=== PATIENT | male | born 1945 | race Caucasian/White ===

== ENCOUNTER 2021-03-18 10:06 | Inpatient (IN) ==
--- NOTE | 2021-03-04 14:24 | Anesthesiology Consultation ---
Date of Service March 04, 2021 Assessment & Plan (1) Encounter for pre-operative examination: COVID screening: Per assessment on 03/04: Travel screen negative, no known COVID- 19 positive contacts or current COVID-19 related symptoms. Patient vaccinated. Surgeon arranging preop COVID testing. Awaiting results. Chart Review Chart Review: Acceptable Risk for Surgery and Patient seen in Pre Admission Testing Teaching & Discussion Pre-Anesthesia Teaching/Discussion Notes: Instructed NPO after midnight before surgery,except medications with 15 cc of water. Medication instructions provided according to the PAT guidelines. History Surgery Operation Date: 03/17/21 12:40 Proposed Procedures p L5-S1 Decompression, Possible Fusion, Spinal Cord Monitoring - Mal Alcantara, Height/Weight Height: 5 ft 9 in Weight: 101.5 kg Allergies Allergy/AdvReac Type Severity Reaction Status Date / Time No Known Allergies Allergy Verified 03/03/21 08:46 Medications Home Medications Medication Instructions Recorded Confirmed Last Taken No Known Home Medications 03/03/21 03/03/21 Unknown Past Medical History Medical History Degenerative disc disease History of high blood pressure History of kidney stones Osteoarthritis Varicose veins of both lower extremities Exercise / Class Metabolic Activity II 4-5 Yardwork/Stairs/Walk up hill (one FS (no CP, no SOB)) Past Family History Family History Other No family history of adverse response to anesthesia Past Surgical History Surgical History H/O metal removed from eye History of cystoscopy + stents, kidney stone removal ([facility], 01/2021) History of tooth extraction History of total hip arthroplasty R/L History of total knee replacement R/L Past Anesthesia History No Hx of Anesthesia Complications and No Family Hx of Anesthesia Complications History of PONV No Hx of PONV and No Hx of Motion Sickness Social History Smoking Status: Never smoker Do You Dip or Chew Tobacco: No Hx Alcohol Use: No Hx Substance Use: No substance use type: does not use Review of Systems Patient denies chest pain, shortness of breath, dyspnea on exertion, fever, chills, cough, wheezing, palpitations. Physical Exam Vital Signs VITALS BP 133/86 P 69 TEMP 98.0 SP02 97%RA RESP 16 PHYSICAL Full cervical extension range of motion. Full TMJ range of motion. TMD 3 finger breaths Mallampati Score 3 Dentition: intact Lungs: clear throughout to auscultation Cardiac: regular rate and rhythm, no murmurs noted Spine: normal Carotid arteries: negative bruit Extremities: no edema Lab Results Anesthesia Preop Results Results Anesthesia Widget: WBC 6.46 K/uL (4.8-10.8) 03/04/21 Hgb 12.2 g/dL (14.0-18.0) L 03/04/21 Hct 37.7 % (42-52) L 03/04/21 Plt 290 K/uL (130-400) 03/04/21 Na 138 mmol/L (136-145) 03/04/21 K 4.1 mmol/L (3.5-5.1) 03/04/21 Cl 113 mmol/L (98-107) H 03/04/21 CO2 24 mmol/L (21-32) 03/04/21 BUN 17 mg/dl (7-18) 03/04/21 Creat 1.17 mg/dl (0.6-1.4) 03/04/21 Glucose Level 93 mg/dl (70-99) 03/04/21 PT 10.0 Seconds (9.0-12.0) 03/04/21 PTT 25.7 Seconds (21.0-31.0) 03/04/21 INR 1.0 (0.9-1.1) 03/04/21 Urine Color Yellow 03/04/21 Urine Appearance Clear (Clear) 03/04/21 Urine pH 5.0 (4.5-7.5) 03/04/21 Urine Specific [place] 1.024 (1.000-1.030) 03/04/21 Urine Protein Negative (Negative) 03/04/21 Urine Glucose (UA) Negative (Negative) 03/04/21 Urine Ketones Trace (Negative) H 03/04/21 Urine Blood Negative (Negative) 03/04/21 Urine Nitrite Negative (Negative) 03/04/21 Urine Bilirubin Negative (Negative) 03/04/21 Urine Urobilinogen Negative (Negative) 03/04/21 Urine Leukocyte Esterase Negative (Negative) 03/04/21 Blood Type B Positive 03/04/21 Antibody Screen NEGATIVE 03/04/21 Testing Electrocardiogram Date: 03/04/21 Findings: + NSR @ (70) Chest X-Ray Date: 03/04/21 Findings: + NAD
[~2021-03-18 10:06] MED LIST: ACETAMINOPHEN 500 MG TAB PO SCH; CeleBREX 200 MG CAP PO SCH; GABAPENTIN 300 MG CAP PO SCH; LR 15ML/HR IV SCH; ceFAZolin 2000MG 2,000 MG/15 ML SYR IV SCH
[2021-03-18] MEDS ORDERED: fentaNYL citrate 100 MCG/2 ML VIAL ONE (11:05)
[2021-03-18] MEDS ORDERED: HYDROmorphone INJ 2 MG/ML SYR/VIAL IV PRN (11:46)
[2021-03-18] MEDS ORDERED: PROMETHAZINE HCL 6.25 MG in SODIUM CHLORIDE 0.9% 50 ML IV PRN (11:46)
[2021-03-18] MEDS ORDERED: ATROPINE SULFATE 0.1 MG/ML 10ML SYR IV PRN (11:46)
[2021-03-18] MEDS ORDERED: fentaNYL citrate 100 MCG/2 ML VIAL IV PRN (11:46)
[2021-03-18] MEDS ORDERED: ONDANSETRON INJ 2 MG/ML 2 ML VIAL IV PRN ×2 (11:46→15:27)
[2021-03-18] MEDS ORDERED: ePHEDrine sulfate 50 MG/ML AMP IV PRN (11:46)
--- NOTE | 2021-03-18 12:12 | History & Physical Bridge Note ---
Date of Service March 18, 2021 History & Physical Bridge Note I have examined the patient, reviewed the History & Physical and in the interval since the performance of the History & Physical I have noted the following changes of clinical significance: no changes noted
[2021-03-18] MEDS ORDERED: BUPIVACAINE 0.5 % 5 MG/1 ML MPF 30ML VIAL ONE (12:13)
[2021-03-18] MEDS ORDERED: EPINEPHrine INJ 1 MG/ML AMP ONE (12:13)
--- NOTE | 2021-03-18 12:13 | History & Physical Report ---
Date of Service March 18, 2021 Assessment & Plan (1) Neurogenic claudication due to lumbar spinal stenosis: Plan: L5-S1 decompression, possible fusion History of Present Illness Chief Complaint: Back and leg pain Primary Care Provider: NO PCP This is a 75-year-old male presents with current persistent back and leg pain. Failing extensive course of nonoperative care is here for surgical invention. Allergies Allergy/AdvReac Type Severity Reaction Status Date / Time No Known Allergies Allergy Verified 03/18/21 10:37 Home Medications Medication Instructions Recorded Confirmed Type No Known Home Medications 03/03/21 03/03/21 History Past Med/Surg History Medical History Degenerative disc disease History of high blood pressure History of kidney stones Osteoarthritis Varicose veins of both lower extremities Surgical History H/O metal removed from eye History of cystoscopy + stents, kidney stone removal ([facility], 01/2021) History of tooth extraction History of total hip arthroplasty R/L History of total knee replacement R/L Family History Other No family history of adverse response to anesthesia Social History Smoking Status: Never smoker Second Hand Exposure: No; Do You Dip or Chew Tobacco: No; Hx Alcohol Use: No Hx Substance Use: No Preferred Language: Lithuanian Heel Seat Laster Required: No Beliefs That Will Affect Care: None Current Living Situation: Alone Feels Safe at Home: Yes Safety Concerns: Feels Safe At This Time Assistive Devices: Cane, Glasses and Hearing Aid - Bilateral Assistive Devices Comment: READING GLASSES Physical Exam Physical Exam: Patient is alert and oriented Heart regular in rhythm Lungs clear to auscultation Results & Data ([facility]) Vital Signs (Past 12 Hours) Vital Signs Temp Pulse Resp BP Pulse Ox 03/18/21 10:38 36.7 C 55 L 20 143/98 H 96
[2021-03-18] MEDS ORDERED: HYDROmorphone INJ 2 MG/ML SYR/VIAL ONE (13:03)
[2021-03-18] MEDS ORDERED: ONDANSETRON INJ 2 MG/ML 2 ML VIAL ONE (13:06)
[2021-03-18] MEDS ORDERED: LIDOCAINE 2% 2 ML VIAL/AMP(20MG/ML) INFIL ONE (13:06)
[2021-03-18] MEDS ORDERED: LARYING-O-JET KIT (LTA) ONE (13:06)
[2021-03-18] MEDS ORDERED: PROPOFOL IV EMULSION 10 MG/ML 20 ML VIAL IV ONE (13:06)
[2021-03-18] MEDS ORDERED: DEXAMETHASONE SOD INJ 4 MG/ML VIAL ONE (13:06)
[2021-03-18] MEDS ORDERED: ROCURONIUM BROMIDE 10 MG/ML 5 ML VIAL IV ONE (13:06)
[2021-03-18] MEDS ORDERED: ePHEDrine sulfate 50 MG/ML AMP ONE ×2 (13:24→13:29)
[2021-03-18] MEDS ORDERED: FLOSEAL HEMOSTATIC MATRIX 10ML TOP ONE (14:09)
--- NOTE | 2021-03-18 14:18 | Operative Report ---
Post Operative Report Pre & Post Diagnosis Operation Date: 03/18/21 11:45 Pre-Op Diagnosis: Spinal Stenosis, Lumbar Region with Neurogenic Claudication Post-Op Diagnosis: Spinal Stenosis, Lumbar Region with Neurogenic Claudication I identified the patient and participated in the time-out.: Yes Procedure Operation Date: 03/18/21 11:45 Actual Procedures #1 lumbar decompression with bilateral medial facetectomies and foraminotomies L4-5 L5-S1. #2 posterior spinal fusion L5-S1. #3 placement posterior instrumentation L5-S1. #4 interbody fusion L5-S1. #5 placement peek cage 14 x 26 mm at L5-S1. #6 placement locally harvested morselized autograft in the posterior gutters. #7 placement use collagen sponge, and master graft in the posterior lateral gutters and I factor in the interbody space. Surgeon Mal Alcantara, DO Doughnut Icer Aleyda Saez Estimated Blood Loss 200 Findings See Below The patient is 5 foot 9 weighing over 101 kg with a BMI of 33. Patient's body habitus did contribute to significant technical difficulty acquiring her deeper retractors longer instruments in order to perform his procedure. This had at least 25% increase to the operative time. Specimens None Indications This is a 75-year-old male who presents above-mentioned diagnosis after failing course of nonoperative care is here for the above-mentioned procedure. Description of Procedure Patient was met with identified informed consent obtained. Patient was then taken to the operative suite underwent ablation placed in a prone position the [place] table top Alexi frame. All bony prominences well-padded eyes inspected to ensure no external pressure placed upon the. This point the lumbar spine was prepped and draped in a sterile fashion. Sharp dissection with the assistance of Bovie cautery was performed down to and exposing the lamina and transverse processes of L5 and the sacral ala bilaterally. From caudal cephalad fashion complete laminectomy L5 partial laminectomy L4 bilateral medial facetectomies and foraminotomies performed addressing all spinal stenosis. Pedicle screws were then placed in L5 and S1 levels bilaterally with assistance of fluoroscopy and appropriate sized keely placed. By way of a transforaminal approach on the left complete discectomy of L5-S1 was performed endplates curetted to subcortical bleeding bone and a 14 x 26 mm peek cage filled with I factor tapped in position. The rods were locked in final position bilaterally. The transverse processes of L5 and sacral ala burred to subcortical bleeding bone. Infuse collagen sponge master graft local autograft was placed in the posterior gutters. 15 round REBECCA drain inserted. The incision was then closed with 1 Vicryl the fascia 2-0 Vicryl subcutaneously and 4 Monocryl for final skin closure. Steri-Strips dressings placed. Patient will continue PACU stable condition. Please note spinal cord monitoring was utilized at the procedure no changes noted. Lastly Aleyda Saez was present at the entire surgery involved the patient positioning complex portions of the surgery and final skin closure. I attest to the content of the Intraoperative Record and any orders documented therein. Any exceptions are noted below.
--- NOTE | 2021-03-18 14:29 | Fluoroscopy Report ---
INTRAOPERATIVE RADIOGRAPHS CLINICAL HISTORY: Lumbar spinal fusion surgery. Fluoroscopy time: 25 seconds. FINDINGS: 2 spot fluoroscopic views of the lumbar spine are presented. There has been discectomy at L 5-S1 with laminectomy and posterior fusion at this level. Interpedicular screws are in place. The ort hopedic hardware appears intact. IMPRESSION: Intraoperative images from lumbar spinal fusion surgery as above. Electronically signed by: Jatinder García M.D. 03/18/2021 2:28 PM
--- NOTE | 2021-03-18 15:09 | Anesthesiology Progress Note ---
Date of Service March 18, 2021 Anesthesia Post Procedure Vital Signs Vital Signs: Temp Pulse Pulse Resp BP Pulse Ox 03/18/21 15:00 36.2 C L 52 L 12 125/66 96 03/18/21 14:50 54 L 12 141/77 H 100 03/18/21 14:40 56 L 14 151/77 H 100 03/18/21 14:33 36.1 C L 59 L 16 143/81 H 99 03/18/21 10:38 36.7 C 55 L 20 143/98 H 96 Pain Intensity Left Upper Buttock: Pain Intensity: 3 Lower Back: Pain Intensity: 2 Transfer of Care Handoff Completed per policy Notes Mental Status: alert / awake / arousable Patient Amnestic to Procedure: Yes Nausea / Vomiting: adequately controlled Pain: adequately controlled Airway Patency, RR, SpO2: stable & adequate BP & HR: stable & adequate Hydration State: stable & adequate Anesthetic Complications: no major complications apparent
[2021-03-18] MEDS ORDERED: DO NOT ADMINISTER FLU VACCINE PRN (15:27)
[2021-03-18] MEDS ORDERED: ALUMINUM/MAGNESIUM SUSP 30 ML UDC PO PRN (15:27)
[2021-03-18] MEDS ORDERED: NALOXONE HCL 0.4 MG/1 ML VIAL/CARP IV PRN (15:27)
[2021-03-18] MEDS ORDERED: METOCLOPRAMIDE HCL INJ 5 MG/ML 2 ML VIAL IV PRN (15:27)
[2021-03-18] MEDS ORDERED: ONDANSETRON 4 MG OD TAB PO PRN (15:27)
[2021-03-18] MEDS ORDERED: ACETAMINOPHEN 500 MG TAB PO PRN (15:27)
[2021-03-18] MEDS ORDERED: LACTATED RINGER'S 1,000 ML IV SCH (15:27)
[2021-03-18] MEDS ORDERED: traMADol HCL 50 MG TABLET PO PRN (15:27)
[2021-03-18] MEDS ORDERED: MAGNESIUM HYDROXIDE SUSP 30 ML UDC PO PRN (15:27)
[2021-03-18] MEDS ORDERED: SOD PHOSPHATE/SOD BIPHOSPHATE ENEMA 132 ML BTL PR PRN (15:27)
[2021-03-18] MEDS ORDERED: oxyCODONE HCL IR 5 MG TAB (IMMEDIATE RELEASE) PO PRN (15:27)
[2021-03-18] MEDS ORDERED: diphenhydrAMINE Capsule 25 MG CAP PO PRN (15:27)
[2021-03-18] MEDS ORDERED: FAMOTIDINE 20 MG TAB PO PRN (15:27)
[2021-03-18] MEDS ORDERED: HYDROmorphone INJ 1 MG/ML SYRINGE IV PRN (15:27)
[2021-03-18] MEDS ORDERED: HYDROmorphone INJ 0.5 MG/0.5 ML SYR IV PRN (15:27)
[2021-03-18] MEDS ORDERED: ACETAMINOPHEN 1,000 MG/100 ML VIAL IV PRN (15:27)
[2021-03-18] MEDS ORDERED: LORazepam 0.5 MG/1 ML VIAL IV PRN (15:27)
[2021-03-18] MEDS ORDERED: hydrOXYzine HCl 25 MG TAB PO PRN (15:27)
[2021-03-18] MEDS ORDERED: LORazepam 0.5 MG TAB PO PRN (15:27)
[2021-03-18] MEDS ORDERED: PROMETHAZINE HCL 12.5 MG in SODIUM CHLORIDE 0.9% 50 ML IV PRN (15:27)
[2021-03-18] MEDS ORDERED: bisacodyL 10 MG SUPP PR PRN (15:27)
[2021-03-18] MEDS ORDERED: DO NOT ADMINISTER PNEUMOCOCCAL VACCINE PRN (15:27)
[2021-03-18] MEDS ORDERED: COUGH DROP (SUGAR FREE) LOZ 24 LOZ/1 BOX BUCCAL ONE (19:57)
[2021-03-18] MEDS: DOCUSATE SODIUM/SENNA 50/8.6MG TAB PO SCH (21:07)
[2021-03-18] MEDS: ceFAZolin 2000MG 2,000 MG/15 ML SYR IV SCH (21:07)
[2021-03-18 21:16] LABS: BUN Creatinine Ratio 15.7 (10-20); Calcium 10.9 mg/dl (8.5-10.1); Creatinine Clr Calc Pharmacy 82.3 ml/min; Est GFR (African American) 95.2 ml/min; Est GFR (Non-African American) 82.2 ml/min; Magnesium 2.1 mg/dl (1.8-2.4); Phosphorus 2.3 mg/dl (2.5-4.9); Potassium 4.6 mmol/L (3.5-5.1)
[2021-03-18] MEDS ORDERED: SODIUM CHLORIDE 0.9% 1000ML 1,000 ML IV ONE (22:02)
[2021-03-18] MEDS ORDERED: SODIUM PHOSPHATE 3 MMOL/1 ML 5 ML VIAL IV STA (22:26)
--- NOTE | 2021-03-18 22:33 | Hospitalist Consultation ---
Date of Consultation March 18, 2021 Assessment & Plan (1) Neurogenic claudication due to lumbar spinal stenosis: Final Assessment and Recommendations as follows : LSS status post surgery Clinically well Hypercalcemia, hypophosphatemia likely secondary to primary hyperparathyroidism HTN, stable off maintenance medications, history medication noncompliance Anemia, possibly chronic, unknown baseline IVF, follow serum calcium, replace serum phosphorus Outpatient Endocrinology referral by PCP for primary hyperparathyroidism Outpatient anemia work-up care of PCP Transfuse PRBC if hemoglobin less than 7 and or for symptomatic anemia DVT prophylaxis. SCDs as per postop Orthopedics orders Thank you very much for this consultation. Dr. sAtorga will follow patient's progress. Text document was generated using Quisk voice recognition software. It may contain grammatical or spelling errors. Kindly contact undersigned for clarification of any documentation item in question. History of Present Illness Reason for Consultation: Medical management Requesting Physician: Dr. Alcantara Attending Physician: Mal Alcantara, DO History of Present Illness PCP : None (Patient intends to set up PCP services with Dr. Ralph of [place] upon discharge.) History obtained from patient and records. Medical history significant for hypertension, osteoarthritis, urolithiasis, medication noncompliance. Patient has not had a PCP for about 10 years. Last confinement [facility] last month for kidney stones status post surgery. Patient currently admitted under Orthopedics Spine service sp elective back surgery for lumbar spinal stenosis. Patient comfortable. Denies chest pain, S OB. Medical History as above Surgical History : Urologic procedures, back surgery, dental surgery, hip carly jaime, knee replacement, eye surgery Family History : Blood clots, kidney stones Personal/Social history : Non-smoker, no EtOH intake, daily adhikari Allergies Allergy/AdvReac Type Severity Reaction Status Date / Time No Known Allergies Allergy Verified 03/18/21 10:37 Home Medications Medication Instructions Recorded Confirmed Type No Known Home Medications 03/03/21 03/03/21 History oxycodone 5 mg tablet 5 mg PO Q6H PRN #30 tab 03/19/21 Rx tramadol 50 mg tablet 50 mg PO Q6H PRN #30 tab 03/19/21 Rx Patient History Medical History Degenerative disc disease History of high blood pressure History of kidney stones Osteoarthritis Varicose veins of both lower extremities Surgical History H/O metal removed from eye History of cystoscopy + stents, kidney stone removal ([facility], 01/2021) History of tooth extraction History of total hip arthroplasty R/L History of total knee replacement R/L Family History Other No family history of adverse response to anesthesia Social History Smoking Status: Never smoker Second Hand Exposure: No; Do You Dip or Chew Tobacco: No; Hx Alcohol Use: No Hx Substance Use: No Preferred Language: Georgian Communication Ability: Effective Commercial Green Building Designer Required: No Beliefs That Will Affect Care: None Current Living Situation: Spouse Other Information That Helps Us Care for You: No Feels Safe at Home: Yes Safety Concerns: Feels Safe At This Time Assistive Devices: None Assistive Devices Comment: READING GLASSES Review of Systems Review of Systems: As per HPI, all 10 systems reviewed, all other ROS negative Physical Exam Physical Exam: GENERAL: Comfortable, obese, pleasant, no respiratory distress SKIN: Pallor, warm HEENT: Alopecia, pale palpebral conjunctivae, no ptosis, dry buccal mucosa NECK : Supple, short neck, no tenderness CHEST : CTA, no tenderness HEART : Bradycardic, no obvious murmurs ABDOMEN: Some distention, nontender EXTREMITIES : No LE swelling/tenderness, no other conspicuous deformities noted NEUROLOGIC : Coherent, no facial asymmetry, no other gross focality Results & Data Results & Data ([facility]) Vital Signs (Past 12 Hours) Vital Signs Temp Pulse Pulse Resp BP BP Pulse Ox 03/18/21 21:29 36.6 C 60 18 105/70 96 03/18/21 20:54 36.6 C 65 18 110/64 97 03/18/21 19:27 53 L 16 98/57 L 96 03/18/21 18:19 36.7 C 51 L 16 95/56 L 91 03/18/21 17:45 53 L 14 103/64 94 03/18/21 17:30 54 L 16 111/80 94 03/18/21 17:15 36.1 C L 75 16 129/88 94 03/18/21 17:00 48 L 16 113/70 94 03/18/21 16:45 48 L 16 111/68 95 03/18/21 16:30 61 20 123/66 97 08/24/21 16:15 48 L 16 118/66 98 03/18/21 16:00 54 L 20 95/65 L 98 03/18/21 15:45 45 L 12 90/55 L 96 03/18/21 15:30 49 L 16 119/43 L 98 03/18/21 15:15 47 L 12 99/58 L 98 03/18/21 15:00 36.2 C L 52 L 12 125/66 96 03/18/21 14:50 54 L 12 141/77 H 100 03/18/21 14:40 56 L 14 151/77 H 100 03/18/21 14:33 36.1 C L 59 L 16 143/81 H 99 03/18/21 10:38 36.7 C 55 L 20 143/98 H 96 Laboratory Results Laboratory Results Sodium 140 mmol/L (136-145) 03/18/21 20:34 Potassium 4.6 mmol/L (3.5-5.1) 03/18/21 20:34 Chloride 112 mmol/L (98-107) H 03/18/21 20:34 Carbon Dioxide 23 mmol/L (21-32) 03/18/21 20:34 Anion Gap 5.0 (3-11) 03/18/21 20:34 BUN 14 mg/dl (7-18) 03/18/21 20:34 Creatinine 0.91 mg/dl (0.6-1.4) 03/18/21 20:34 Est Cr Clr Drug Dosing 82.3 ml/min 03/18/21 20:34 Est GFR ( Amer) 95.2 ml/min 03/18/21 20:34 Est GFR (Non-Af Amer) 82.2 ml/min 03/18/21 20:34 BUN/Creatinine Ratio 15.7 (10-20) 03/18/21 20:34 Glucose 133 mg/dl (70-99) H 03/18/21 20:34 Lactate 1.2 mmol/L (0.4-2.0) 03/18/21 20:39 Calcium 10.9 mg/dl (8.5-10.1) H 03/18/21 20:34 Phosphorus 2.3 mg/dl (2.5-4.9) L 03/18/21 20:34 Magnesium 2.1 mg/dl (1.8-2.4) 03/18/21 20:34 PTH Intact 485.1 pg/ml (18.4-80.1) H 03/18/21 20:34 COVID-19 Eval Order Covid19 at [facility] 03/18/21 10:34 SARS-CoV-2 (PCR) NEGATIVE (Negative) 03/18/21 10:34 Impressions Lumbar Spine X-Ray 03/18/21 07:30 INTRAOPERATIVE RADIOGRAPHS CLINICAL HISTORY: Lumbar spinal fusion surgery. Fluoroscopy time: 25 seconds. FINDINGS: 2 spot fluoroscopic views of the lumbar spine are presented. There has been discectomy at L5-S1 with laminectomy and posterior fusion at this level. Interpedicular screws are in place. The orthopedic hardware appears intact. IMPRESSION: Intraoperative images from lumbar spinal fusion surgery as above. Electronically signed by: Jatinder García M.D. 03/18/2021 2:28 PM Diagnostic Findings Lab Results 03/18/21 03/18/21 03/18/21 Range/Units 10:34 10:34 20:34 WBC (4.8-10.8) K/uL RBC (4.7-6.1) M/uL Hgb (14.0-18.0) g/dL Hct (42-52) % MCV (80-100) fL MCH (25-34) pg MCHC (32-36) g/dL RDW Std Deviation (36.4-46.3) fL RDW Coeff of Mariah (11.5-14.5) % Plt Count (130-400) K/uL MPV (7.4-10.4) fL Immature Gran % (Auto) % Neut % (Auto) % Lymph % (Auto) % [place] % (Auto) % Eos % (Auto) % Baso % (Auto) % Neut # (Auto) (1.4-6.5) K/uL Lymph # (Auto) (1.2-3.4) K/uL [place] # (Auto) (0.11-0.59) K/uL Eos # (Auto) (0-0.5) K/uL Baso # (Auto) (0-0.2) K/uL Immature Gran # (Auto) (0.00-0.02) K/uL Sodium 140 (136-145) mmol/L Potassium 4.6 (3.5-5.1) mmol/L Chloride 112 H (98-107) mmol/L Carbon Dioxide 23 (21-32) mmol/L Anion Gap 5.0 (3-11) BUN 14 (7-18) mg/dl Creatinine 0.91 (0.6-1.4) mg/dl Est Cr Clr Drug Dosing 82.3 ml/min Est GFR ( Amer) 95.2 ml/min Est GFR (Non-Af Amer) 82.2 ml/min BUN/Creatinine Ratio 15.7 (10-20) Glucose 133 H (70-99) mg/dl Lactate (0.4-2.0) mmol/L Calcium 10.9 H (8.5-10.1) mg/dl Phosphorus 2.3 L (2.5-4.9) mg/dl Magnesium 2.1 (1.8-2.4) mg/dl PTH Intact (18.4-80.1) pg/ml COVID-19 Eval Order Covid19 at [facility] SARS-CoV-2 (PCR) NEGATIVE (Negative) 03/18/21 03/18/21 03/19/21 Range/Units 20:34 20:39 06:42 WBC 7.98 (4.8-10.8) K/uL RBC 3.22 L (4.7-6.1) M/uL Hgb 10.1 L (14.0-18.0) g/dL Hct 31.3 L (42-52) % MCV 97.2 (80-100) fL MCH 31.4 (25-34) pg MCHC 32.3 (32-36) g/dL RDW Std Deviation 46.4 H (36.4-46.3) fL RDW Coeff of Mariah 13.2 (11.5-14.5) % Plt Count 163 (130-400) K/uL MPV 10.4 (7.4-10.4) fL Immature Gran % (Auto) 0.0 % Neut % (Auto) 86.7 % Lymph % (Auto) 8.0 % [place] % (Auto) 5.3 % Eos % (Auto) 0.0 % Baso % (Auto) 0.0 % Neut # (Auto) 6.92 H (1.4-6.5) K/uL Lymph # (Auto) 0.64 L (1.2-3.4) K/uL [place] # (Auto) 0.42 (0.11-0.59) K/uL Eos # (Auto) 0.00 (0-0.5) K/uL Baso # (Auto) 0.00 (0-0.2) K/uL Immature Gran # (Auto) 0.00 (0.00-0.02) K/uL Sodium (136-145) mmol/L Potassium (3.5-5.1) mmol/L Chloride (98-107) mmol/L Carbon Dioxide (21-32) mmol/L Anion Gap (3-11) BUN (7-18) mg/dl Creatinine (0.6-1.4) mg/dl Est Cr Clr Drug Dosing ml/min Est GFR ( Amer) ml/min Est GFR (Non-Af Amer) ml/min BUN/Creatinine Ratio (10-20) Glucose (70-99) mg/dl Lactate 1.2 (0.4-2.0) mmol/L Calcium (8.5-10.1) mg/dl Phosphorus (2.5-4.9) mg/dl Magnesium (1.8-2.4) mg/dl PTH Intact 485.1 H (18.4-80.1) pg/ml COVID-19 Eval Order SARS-CoV-2 (PCR) (Negative) 03/19/21 Range/Units 06:42 WBC (4.8-10.8) K/uL RBC (4.7-6.1) M/uL Hgb (14.0-18.0) g/dL Hct (42-52) % MCV (80-100) fL MCH (25-34) pg MCHC (32-36) g/dL RDW Std Deviation (36.4-46.3) fL RDW Coeff of Mariah (11.5-14.5) % Plt Count (130-400) K/uL MPV (7.4-10.4) fL Immature Gran % (Auto) % Neut % (Auto) % Lymph % (Auto) % [place] % (Auto) % Eos % (Auto) % Baso % (Auto) % Neut # (Auto) (1.4-6.5) K/uL Lymph # (Auto) (1.2-3.4) K/uL [place] # (Auto) (0.11-0.59) K/uL Eos # (Auto) (0-0.5) K/uL Baso # (Auto) (0-0.2) K/uL Immature Gran # (Auto) (0.00-0.02) K/uL Sodium 142 (136-145) mmol/L Potassium 4.8 (3.5-5.1) mmol/L Chloride 113 H (98-107) mmol/L Carbon Dioxide 24 (21-32) mmol/L Anion Gap 6.0 (3-11) BUN 15 (7-18) mg/dl Creatinine 1.07 (0.6-1.4) mg/dl Est Cr Clr Drug Dosing 70.0 ml/min Est GFR ( Amer) 78.3 ml/min Est GFR (Non-Af Amer) 67.5 ml/min BUN/Creatinine Ratio 13.7 (10-20) Glucose 133 H (70-99) mg/dl Lactate (0.4-2.0) mmol/L Calcium 10.6 H (8.5-10.1) mg/dl Phosphorus 2.5 (2.5-4.9) mg/dl Magnesium (1.8-2.4) mg/dl PTH Intact (18.4-80.1) pg/ml COVID-19 Eval Order SARS-CoV-2 (PCR) (Negative)
[2021-03-18] MEDS ORDERED: SODIUM PHOSPHATE 18 MMOL in SODIUM CHLORIDE 0.9% 500 ML IV ONE (22:45)
[2021-03-19] MEDS ORDERED: SODIUM CHLORIDE 0.9% 1000ML 1,000 ML IV ONE
[2021-03-19] MEDS: ceFAZolin 2000MG 2,000 MG/15 ML SYR IV SCH (05:07)
[2021-03-19] MEDS: POLYETHYLENE (MIRALAX) 17 GM PACK PO SCH ×3 (05:41→18:25)
[2021-03-19 06:55] LABS: Hematocrit (blood only) 31.3 % (42-52); Hemoglobin 10.1 g/dL (14.0-18.0); Lymphocytes # (auto) 0.64 K/uL (1.2-3.4); Mean Corpuscular Hemoglobin 31.4 pg (25-34); Mean Corpuscular Hgb Conc 32.3 g/dL (32-36); Mean Corpuscular Volume 97.2 fL (80-100); Mean Platelet Volume 10.4 fL (7.4-10.4); Monocytes # (auto) 0.42 K/uL (0.11-0.59); Monocytes % (auto) 5.3 %; Neutrophils # (auto) 6.92 K/uL (1.4-6.5); Neutrophils % (auto) 86.7 %; Platelet Count 163 K/uL (130-400); RDW Coefficient of Variation 13.2 % (11.5-14.5); RDW Standard Deviation 46.4 fL (36.4-46.3); Red Blood Count 3.22 M/uL (4.7-6.1); White Blood Count 7.98 K/uL (4.8-10.8)
[2021-03-19 07:19] LABS: BUN Creatinine Ratio 13.7 (10-20); Calcium 10.6 mg/dl (8.5-10.1); Est GFR (African American) 78.3 ml/min; Est GFR (Non-African American) 67.5 ml/min; Potassium 4.8 mmol/L (3.5-5.1)
[2021-03-19 07:20] LABS: Phosphorus 2.5 mg/dl (2.5-4.9)
--- NOTE | 2021-03-19 12:00 | Orthopedic Progress Note ---
Date of Service March 19, 2021 Assessment & Plan (1) Neurogenic claudication due to lumbar spinal stenosis: Plan: This time continue physical therapy monitor his REBECCA operatively discharge home in the next few days. Admission and Anticipated Discharge Date Admission Date: March 18, 2021 Subjective Back pain controlled left leg pain markedly improved Physical Exam Physical Exam: Patient is comfortable is good strength testing. Results & Data ([facility]) Vital Signs (Past 12 Hours) Vital Signs Temp Pulse Resp BP BP Pulse Ox 03/19/21 08:15 36.3 C L 55 L 18 118/67 97 03/19/21 03:00 36.8 C 64 20 113/76 96
--- NOTE | 2021-03-19 18:38 | Hospitalist Progress Note ---
Date of Service March 19, 2021 Assessment & Plan (1) Neurogenic claudication due to lumbar spinal stenosis: Plan: S/p spinal surgery POD#2 s/p L5-S1 decompression and fusion by Dr. Alcantara Pt is doing well post-operatively Per ortho for pain control, wound care, anticoagulation and activities Monitor H&H, continue incentive spirometry, PT/OT when appropriate Transfuse PRBC if hemoglobin less than 7 and or for symptomatic anemia Hypercalcemia, hypophosphatemia Likely secondary to primary hyperparathyroidism Repeat lab work pending Outpatient Endocrinology referral by PCP for primary hyperparathyroidism HTN Stable off maintenance medications, history medication noncompliance Anemia Possibly chronic, unknown baseline Follow up with PCP Repeat CBC pending PCP: Previously followed with Dr. Clarke - needs new PCP Dispo: Per primary service Patient seen in collaboration with Dr. Astorga. Please see addendum. Thank you for this consultation. We will follow the patient with you during their hospital stay. You can [facility] a [facility] via [place] Text @ "[facility] Hospitalist" role. Admission and Anticipated Discharge Date Admission Date: March 18, 2021 Supervising Physician Co-Signing Physician Notes Patient was seen and examined. Agree with emiliano PA-C exam, assessment, and plan. POD#2 s/p L5-S1 decompression and fusion performed by Dr. Alcantara. No postop complication. Continue pain management. Hemoglobin stable continue incentive spirometry. Continue monitor H&H. PT/OT eval. fall precaution. MD Rizwan Subjective Patient seen and examined in 357-1. Feeling well today. Participated with PT without issue. Minimal surgical site pain, no pain or paresthesias in bilateral lower extremities. No fever, chills, lightheadedness, headache, chest pain, SOB, nausea, vomiting, abd pain, dysuria, or diarrhea. Passing flatus, no postop bowel movement yet. Review of Systems Review of Systems: At least ten systems reviewed and negative except as noted in the HPI. Physical Exam Physical Exam: General Appearance: WD/WN, vitals as above, NAD, sitting up in bed, pleasant, conversing easily Head: normocephalic, atraumatic Eyes: normal inspection, PERRL, conjunctivae normal, anicteric sclerae ENT: external ear and nose normal, oropharynx normal Neck: normal visual inspection, trachea midline, no thyromegaly Respiratory: normal respiratory effort, lungs clear to auscultation, no wheeze, rales, rhonchi. No accessory muscle use Cardiovascular: regular rate, rhythm, no murmur, normal peripheral pulses, no BLE edema. Vessels: no JVD Chest: normal inspection of chest Abdomen/GI: normal bowel sounds, soft, nontender, no hepatosplenomegaly Extremities/Musculoskeletal: Spinal surgery dressing c/d/i. No cyanosis or clubbing, extremities motor strength 5/5 Neurologic: PERRL, CN's II-XI intact bilaterally and moves all extremities Psychiatric: A+Ox3, euthymic affect Skin: no rashes, normal color, warm/dry Results & Data Results & Data ([facility]) Vital Signs (Past 12 Hours) Vital Signs Temp Pulse Resp BP BP Pulse Ox 03/19/21 16:17 36.3 C L 59 L 16 128/73 98 03/19/21 08:15 36.3 C L 55 L 18 118/67 97
[2021-03-19] MEDS: DOCUSATE SODIUM/SENNA 50/8.6MG TAB PO SCH (21:44)
[2021-03-20] MEDS: POLYETHYLENE (MIRALAX) 17 GM PACK PO SCH ×3 (00:50→12:37)
[2021-03-20] MEDS ORDERED: dexAMETHasone 8 MG in SYRINGE 0 ML IV SCH (09:00)
--- NOTE | 2021-03-20 11:47 | Hospitalist Progress Note ---
Date of Service March 20, 2021 Assessment & Plan (1) Neurogenic claudication due to lumbar spinal stenosis: Plan: S/p spinal surgery POD#2 s/p L5-S1 decompression and fusion by Dr. Alcantara Pt is doing well post-operatively Per ortho for pain control, wound care, anticoagulation and activities Monitor H&H, continue incentive spirometry, PT/OT when appropriate Transfuse PRBC if hemoglobin less than 7 and or for symptomatic anemia Hypercalcemia, hypophosphatemia Likely secondary to primary hyperparathyroidism Repeat lab work pending Outpatient Endocrinology referral by PCP for primary hyperparathyroidism HTN Stable off maintenance medications, history medication noncompliance Anemia Possibly chronic, unknown baseline Follow up with PCP Repeat CBC pending PCP: Previously followed with Dr. Clarke - needs new PCP Dispo: Per primary service Patient seen in collaboration with Dr. Astorga. Please see addendum. Thank you for this consultation. We will follow the patient with you during their hospital stay. You [facility] via [place] Text @ "[facility] Hospitalist" role. Admission and Anticipated Discharge Date Admission Date: March 18, 2021 Supervising Physician Co-Signing Physician Notes Patient was seen and examined. Agree with emiliano PA-C exam, assessment, and plan. POD#2 s/p L5-S1 decompression and fusion performed by Dr. Alcantara. No postop complication. Continue pain management. Hemoglobin stable continue incentive spirometry. Continue monitor H&H. PT/OT eval. fall precaution. MD Rizwan Subjective Patient seen and examined in 357-1. Feeling well today. Participated with PT without issue. Minimal surgical site pain, no pain or paresthesias in bilateral lower extremities. No fever, chills, lightheadedness, headache, chest pain, SOB, nausea, vomiting, abd pain, dysuria, or diarrhea. Passing flatus, no postop bowel movement yet. Review of Systems Review of Systems: At least ten systems reviewed and negative except as noted in the HPI. Physical Exam Physical Exam: General Appearance: WD/WN, vitals as above, NAD, sitting up in bed, pleasant, conversing easily Head: normocephalic, atraumatic Eyes: normal inspection, PERRL, conjunctivae normal, anicteric sclerae ENT: external ear and nose normal, oropharynx normal Neck: normal visual inspection, trachea midline, no thyromegaly Respiratory: normal respiratory effort, lungs clear to auscultation, no wheeze, rales, rhonchi. No accessory muscle use Cardiovascular: regular rate, rhythm, no murmur, normal peripheral pulses, no BLE edema. Vessels: no JVD Chest: normal inspection of chest Abdomen/GI: normal bowel sounds, soft, nontender, no hepatosplenomegaly Extremities/Musculoskeletal: Spinal surgery dressing c/d/i. No cyanosis or clubbing, extremities motor strength 5/5 Neurologic: PERRL, CN's II-XI intact bilaterally and moves all extremities Psychiatric: A+Ox3, euthymic affect Skin: no rashes, normal color, warm/dry Results & Data Results & Data ([facility]) Vital Signs (Past 12 Hours) Vital Signs Temp Pulse Resp BP Pulse Ox 03/20/21 07:30 36.8 C 72 17 126/74 95
--- NOTE | 2021-03-20 12:43 | Discharge Summary ---
Date of Service March 20, 2021 Admission HPI Per Admitting Provider This is a 75-year-old male presents with current persistent back and leg pain. Failing extensive course of nonoperative care is here for surgical invention. Principal Diagnosis Lumbar spinal stenosis with radiculopathy Discharge Data Allergies Allergy/AdvReac Type Severity Reaction Status Date / Time No Known Allergies Allergy Verified 03/18/21 10:37 Consultations 03/18/21 15:27 Consult Hospitalist Routine Procedures Performed Operation Date: 03/18/21 11:45 Actual Procedures p L5-S1 Decompression, Fusion, Spinal Cord Monitoring(Not Applicable) - Mal Alcantara DO Ordered Studies 03/18/21 07:30 [place] lumbar spine 2-3V Routine Hospital Course (1) Neurogenic claudication due to lumbar spinal stenosis: Patient with limited motion fusion trial associated orthopedic for postop labor postop day one he was up and ambulating progressive postop day #2 REBECCA drain decreased probably. Pain well controlled. Excellent strength testing. Subsequently discharged home. Discharge orders instructions were on the chart for further review. Total Time Total Time Spent Total Time Spent (In Minutes): 20 minutes Discharge Plan Discharge Items Patient Disposition: Home - Self-Care Reason For Visit: Spinal Stenosis, Lumbar Region with Neurogenic Cla Discharge Diagnosis: Lumbar spinal stenosis with neurogenic claudication Activity: As commented below Non-emergency contact: Primary Care Provider Call non-emergency contact if: you have any medication questions Follow-up/Referrals: PCP,NO [Primary Care Provider] - Diet: Regular Addtl Attending Provider Instructions: ACTIVITY RECOMMENDATIONS: SELF CARE INSTRUCTIONS AFTER THORACIC/LUMBAR FUSIONS 1. You may walk to your tolerance. It is good exercise for your legs and back. Expect some back and intermittent leg aches and pains. 2. You may perform "counter-top" level activities (make a sandwich, jonathan with a project, etc.). 3. No bending or lifting of more than 10 pounds or back twisting of any nature (roll like a log when turning in bed). 4. You may ride in a car for 20-30 minutes at a time. No driving until after your first visit with your doctor. 5. Frequent changes of position and restricting sitting to 30 minutes at a time will help limit the amount of back spasms and stiffness you may experience. 6. You may discontinue the use of ambulatory aids (cane, crutches, etc.) once your strength and confidence allow. 7. You may wallcovering texturer the shower and let water strike your incision when you arrive home at least once daily. Do not take a tub bath, sit in a hot tub or go into a swimming pool until after your first recheck in the office. SPECIAL CARE INSTRUCTIONS: VERY IMPORTANT TO READ AND REVIEW A. Your surgical incision has been closed with a cosmetic suture under the skin that will dissolve in about 6 weeks. In 14 days, you can use a pair of clean scissors and cut the suture that is left outside of the skin at the ends of your incision. 1. The small skin tapes can be removed 7 days after surgery if they have not fallen off by that point. 2. You may keep the wound open to air as much as possible to promote healing after post-op day number 5 unless told otherwise by your doctor. 3. If you think the wound looks like it is becoming infected (redness or worsening drainage) and/or you are experiencing fever, chill or worsening back pain and muscle spasms, contact the office so that we may evaluate you as soon as possible. B. Complications are uncommon, but please contact us if you have any signs or symptoms of: 1. wound infection (fever higher than 102.5 degrees F, redness, separation of wound, drainage, or increasing pain from the incision) 2. blood clots in legs (pain, swelling, redness and warmth in legs) 3. urinary tract infection (fever higher than 102.5 degrees F, burning upon urination or increased frequency of urination) 4. nerve problems (inability to walk on your toes or heels, numbness, loss of bowel or bladder control) 5. any other symptoms that concern you C. Please call the office at if you have any concerns or questions about your operation or recovery. D. No smoking! Smoking drastically decreases the chance of a solid fusion. E. Do not take any anti-inflammatory medications (Indocin, Advil, Motrin, Aspirin, Naprosyn, etc.) as these may inhibit the chance of a solid fusion. Tylenol is okay to take for pain. MANAGING PAIN AFTER SPINAL SURGERY 1. Narcotic medication is intended for short-term use and will be provided for surgical pain. Surgical pain usually lasts for a period of 4-6 weeks. Narcotic medication includes Percocet, Vicodin, Darvocet, Tylenol #3 or Lortab. 2. Longer-term pain is more appropriately treated with non-narcotic medication such as Tylenol ES. 3. Muscle spasm is not appropriately treated with narcotics. Muscle relaxers such as Soma, Flexeril or Skelaxin can be used along with Tylenol ES. 4. Remember that we all live with some "aches and pains". This is not unusual or uncommon after an injury or as we get older. a. Back pain is expected and may include muscle spasms for 4 to 6 weeks after surgery. The pain should gradually improve. If the pain worsens for no apparent reason, please contact the office. b. Intermittent leg pain may also be experienced and should not be concerned about unless it worsens for no apparent reason. If so, please contact the office. 5. We will provide appropriate medication within the normal guidelines of their prescribed use. We will also be very cautious and aware of potential abuse and extended duration of patients' medication needs. a. Pain medications are for your comfort and to assist with sleep and rest so that the tissue can heal. They are not provided in order to return to normal activity and should not be used through the day. To do so or worsening pain at night can result from ongoing tissue damage and development of tolerance to the prescribed medicine. 6. Please allow 2-3 days to process refills. Prescriptions will not be mailed but must be picked up at the office. FOLLOW UP VISIT: Keep your scheduled follow-up appointment. Any questions, please call the office at . Pending Studies at Discharge: No Stand-Alone Forms: [facility], Smoking Cessation Medications and DC Order Prescriptions: New tramadol 50 mg tablet 50 mg PO Q6H PRN (Reason: pain, moderate) Qty: 30 RF: 0 oxycodone 5 mg tablet 5 mg PO Q6H PRN (Reason: pain, severe) Qty: 30 RF: 0 No Action No Known Home Medications RF: 0 Discharge Orders: Discharge Order (Routine); Ordered 03/20/21 Ordered By: Mal Alcantara Admission Data Admit Date/Time: 03/18/21 14:23 Attending Provider: Mal Alcantara Admit Provider: Mal Alcantara Primary Care Provider: PCP,NO Other Providers: Nataly Villeda ; Rossana Astorga
== END 2021-03-20 15:07 | disposition home or self-care (01) | DRG 455 ==
LOC: ASU 10:06 → PACUINP 14:23 → 3W 18:13
DX: Z91.14 Patient's other noncompliance with medication regimen; I10 Essential (primary) hypertension; M48.062 Spinal stenosis, lumbar region with neurogenic claudication; D64.9 Anemia, unspecified; M54.16 Radiculopathy, lumbar region; E21.0 Primary hyperparathyroidism; Z20.822 Contact with and (suspected) exposure to COVID-19